=== PATIENT | male | born 1945 | race Hispanic/Latino ===

== ENCOUNTER 2021-03-24 22:42 | Emergency (ER) | payer MEDICARE ==
[~2021-03-24] VITALS: Ht 177.8 cm; Wt 104.3 kg
[2021-03-24] MEDS ORDERED: PREDNISONE 20 MG TAB PO STA (23:13)
[2021-03-24] MEDS ORDERED: KETOROLAC TROMETHAMINE 60 MG/2 ML VIAL IM ONE (23:15)
[2021-03-24] MEDS ORDERED: PREDNISONE 20 MG TAB ONE (23:35)
[2021-03-24] MEDS ORDERED: KETOROLAC TROMETHAMINE 60 MG/2 ML VIAL ONE (23:36)
== END 2021-03-25 00:37 | disposition home or self-care (01) ==
LOC: FSED 23:15
DX: M54.42 Lumbago with sciatica, left side (principal); M54.41 Lumbago with sciatica, right side; I10 Essential (primary) hypertension; E78.5 Hyperlipidemia, unspecified; E03.9 Hypothyroidism, unspecified
CPT/HCPCS: 72100; 99283; J1885; J7512